=== PATIENT | female | born 1965 | race African-American/Black ===

== ENCOUNTER 2016-12-02 06:21 | Day surgery (SDC) | payer OTHER ==
[2016-12-01 12:49] VITALS: BMI 31.6
[2016-12-02] MEDS ORDERED: ePHEDrine SULFATE 50 MG/1 ML AMPULE ONE (07:10)
[2016-12-02] MEDS ORDERED: SUCCINYLCHOLINE CHLORIDE 200 MG/10 ML VIAL ONE (07:11)
[2016-12-02] MEDS ORDERED: MIDAZOLAM HCL 2 MG/2 ML SINGLE DOSE VIAL ONE ×2 (07:11)
[2016-12-02] MEDS ORDERED: ceFAZolin SODIUM 1 GM VIAL ONE (07:11)
[2016-12-02] MEDS ORDERED: PHENYLEPHRINE HCL 10 MG/1 ML SINGLE DOSE VIAL ONE (07:11)
[2016-12-02] MEDS ORDERED: PROPOFOL 20 ML ONE ×2 (07:11)
[2016-12-02] MEDS ORDERED: DEXAMETHASONE SOD PHOSPHATE 4 MG/1 ML VIAL ONE (07:11)
[2016-12-02] MEDS ORDERED: LIDOCAINE HCL/PF 2% SDV 5ML VIAL ONE ×2 (07:11→07:16)
[2016-12-02] MEDS ORDERED: ROCURONIUM BROMIDE 50 MG/5 ML VIAL ONE (07:11)
[2016-12-02] MEDS ORDERED: ACETAMINOPHEN INJECTION 100 ML IVPB ONE (07:18)
--- NOTE | 2016-12-02 07:58 | HP ---
Admitting History and Physical - Admission Chief Complaint: Excessive and prolonged menstruation History of Present Illness: 51 yo Para 3, with previous , is Pre op for abdominal hysterectomy. She's been experiencing prolonged and excessive menstruation. She's on medication for Hypertension. History Source: Patient Limitations to Obtaining History: No Limitations - Past Medical History ...LMP: 11/04/16 ...: No ...Para: 3 - Past Surgical History Past Surgical History: Yes: - Smoking History Smoking history: Never smoked - Alcohol/Substance Use Hx Alcohol Use: No History of Substance Use: reports: None - Social History History of Recent Travel: No Home Medications - Allergies Allergies/Adverse Reactions: Allergies Allergy/AdvReac Type Severity Reaction Status Date / Time No Known Allergies Allergy Verified 12/02/16 06:50 - Home Medications Home Medications: Ambulatory Orders Amlodipine Besylate 5 mg PO DAILY 12/01/16 Aspirin [ASA -] 81 mg PO DAILY 12/01/16 Losartan/Hydrochlorothiazide [Losartan-Hctz 100-25 mg Tab] 1 each PO DAILY 12/01 Multivitamins [Tab-A-Vit -] 1 tab PO DAILY 12/01/16 Family Disease History - Family Disease History Family History: Unremarkable Review of Systems - Review of Systems Constitutional: reports: No Symptoms Eyes: reports: No Symptoms HENT: reports: No Symptoms Neck: reports: No Symptoms Cardiovascular: reports: No Symptoms Respiratory: reports: No Symptoms Gastrointestinal: reports: No Symptoms Genitourinary: reports: Vaginal Bleeding Breasts: reports: No Symptoms Reported Musculoskeletal: reports: No Symptoms Integumentary: reports: No Symptoms Neurological: reports: No Symptoms Endocrine: reports: No Symptoms Hematology/Lymphatic: reports: No Symptoms Psychiatric: reports: No Symptoms Pain Intensity: 0 Physical Examination Vital Signs: Vital Signs Temperature 97.8 F 12/02/16 06:51 Pulse Rate 91 H 12/02/16 06:51 Respiratory Rate 18 12/02/16 06:51 Blood Pressure 122/81 12/02/16 06:51 O2 Sat by Pulse Oximetry (%) 98 12/02/16 06:50 Constitutional: Yes: Well Nourished Eyes: Yes: Conjunctiva Clear HENT: Yes: Atraumatic Neck: Yes: Supple, Trachea Midline Cardiovascular: Yes: Regular Rate and Rhythm Respiratory: Yes: Regular, CTA Bilaterally Gastrointestinal: Yes: Normal Bowel Sounds ...Rectal Exam: Yes: WNL Renal/: Yes: WNL Musculoskeletal: Yes: WNL Extremities: Yes: WNL Neurological: Yes: Alert, Oriented ...Motor Strength: WNL Psychiatric: Yes: Alert, Oriented Problem List - Problems (1) Menorrhagia with regular cycle Code(s): N92.0 - EXCESSIVE AND FREQUENT MENSTRUATION WITH REGULAR CYCLE Assessment/Plan Menorrhagia Pre op for JOSUE Consent signed Prep and shave Anesthesia to see patient
--- NOTE | 2016-12-02 07:59 | OP ---
Operative Note - Note: Operative Date: 12/02/16 Pre-Operative Diagnosis: Menorrhagia Operation: Abdominal Hysterectomy Findings: Leiomyomatous uterus Post-Operative Diagnosis: Other (Menorrhagia, Leiomyoma of the uterus) Surgeon: Rhona Barrientos Engineering Surveyor: Cristina Zuniga Anesthesia: General Specimens Removed: Uterus, Tubes, Ovaries Estimated Blood Loss (mls): 150
[2016-12-02] MEDS ORDERED: DESFLURANE GAS 240 ML BOTTLE IH ONE (08:01)
[2016-12-02] MEDS ORDERED: ceFAZolin SODIUM 1 GM VIAL IVPB ONE (08:36)
[2016-12-02] MEDS ORDERED: HYDROmorphone HCL/PF 1 MG/ML VIAL (FOR PYXIS CHARGING ONLY) ONE (08:59)
[2016-12-02] MEDS ORDERED: GLYCOPYRROLATE 0.2 MG/1 ML VIAL ONE (09:25)
[2016-12-02] MEDS ORDERED: NEOSTIGMINE METHYLSULFATE 0.5 MG/ML - 10 ML MDV ONE (09:25)
[2016-12-02] MEDS ORDERED: KETOROLAC TROMETHAMINE 30 MG/1 ML VIAL ONE (09:25)
[2016-12-02] MEDS ORDERED: PROMETHAZINE HCL 25 MG/1 ML VIAL IVPUSH PRN (10:10)
[2016-12-02] MEDS ORDERED: ONDANSETRON 4 MG/2 ML VIAL IVPUSH PRN ×2 (10:10)
[2016-12-02] MEDS ORDERED: PROMETHAZINE HCL 25 MG/1 ML VIAL IVPB PRN (10:10)
[2016-12-02] MEDS: CEFAZOLIN (PRE-DOCKED) 50 ML IVPB SCH (18:16)
[2016-12-02] MEDS: HYDROmorphone *PCA* 10MG/50ML DISP.SYRIN PCA SCH (19:26)
[2016-12-02] MEDS: LACTATED RINGERS SOLUTION 1,000 ML IV SCH (19:27)
[2016-12-02] MEDS: DEXTROSE 5%-LACTATED RINGERS 1,000 ML IV SCH (19:43)
[2016-12-03] MEDS: CEFAZOLIN (PRE-DOCKED) 50 ML IVPB SCH (02:17)
[2016-12-03] MEDS: DEXTROSE 5%-LACTATED RINGERS 1,000 ML IV SCH (04:03)
--- NOTE | 2016-12-03 07:29 | PN ---
Progress Note, Physician Chief Complaint: feeling well she offers no complaints History of Present Illness: s/p alfonso condition is stable on first post operative day - Current Medication List Current Medications: Active Medications Amlodipine Besylate (Norvasc -) 5 mg PO ONCE ONE Stop: 12/03/16 07:21 Diphenhydramine HCl (Benadryl Injection -) 12.5 mg IVPUSH ONCE PRN PRN Reason: FOR ITCHING Enoxaparin Sodium (Lovenox -) 40 mg SQ DAILY [facility] HCTZ/Losartan Potassium (Hyzaar -) 2 tab PO DAILY [facility] Hydromorphone HCl (Dilaudid Filenet P8 Developer -) 0 mg ADDRESS CHANGE CLERK ADDRESS CHANGE CLERK POOJA PRN Reason: Protocol Stop: 12/09/16 10:11 Last Admin: 12/02/16 19:26 Dose: Not Given Lactated Ringer's (Lactated Ringers Solution) 1,000 mls @ 125 mls/hr IV ASDIR [facility] Last Admin: 12/02/16 19:27 Dose: Not Given Dextrose/Lactated Ringer's (D5-Lr -) 1,000 mls @ 125 mls/hr IV ASDIR [facility] Last Admin: 12/03/16 04:03 Dose: 125 mls/hr Multivitamins/Minerals (Theragran-M) 1 each PO DAILY [facility] Promethazine HCl (Phenergan Injection -) 12.5 mg IVPB Q6H PRN PRN Reason: NAUSEA AND/OR VOMITING - Objective Vital Signs: Vital Signs Temperature 98.7 F 12/03/16 06:00 Pulse Rate 77 12/03/16 06:00 Respiratory Rate 18 12/03/16 06:00 Blood Pressure 105/62 12/03/16 06:00 O2 Sat by Pulse Oximetry (%) 100 12/02/16 12:45 Constitutional: Yes: Well Nourished, No Distress, Calm Eyes: Yes: WNL, Conjunctiva Clear HENT: Yes: WNL, Atraumatic Neck: Yes: WNL, Supple Cardiovascular: Yes: WNL Respiratory: Yes: WNL Gastrointestinal: Yes: WNL ...Rectal Exam: Yes: Deferred Genitourinary: Yes: WNL, Vaginal Bleeding Breast(s): Yes: WNL Musculoskeletal: Yes: WNL Extremities: Yes: WNL Edema: No Peripheral Pulses WNL: Yes Integumentary: Yes: WNL Wound/Incision: Yes: Dressing Dry and Intact Neurological: Yes: Alert, Oriented ...Motor Strength: WNL Psychiatric: Yes: WNL, Alert, Oriented Assessment/Plan s/p alfonso condition is stable continue current care encourage ambulation
[2016-12-03] MEDS ORDERED: amLODIPine BESYLATE 5 MG TABLET (FP) PO ONE (08:45)
[2016-12-03] MEDS: MULTIVITAMINS THER W-MINERALS COMBO TABLET (FP) PO SCH (09:14)
[2016-12-03] MEDS: HYDROmorphone *PCA* 10MG/50ML DISP.SYRIN PCA SCH (09:57)
[2016-12-03] MEDS: ENOXAPARIN NA (PORCINE) 40 MG/0.4 ML DISP.SYRIN SQ SCH (10:46)
[2016-12-03] MEDS: LOSARTAN 50MG/HCTZ 12.5MG 1 TAB (FP) PO SCH (10:46)
[2016-12-03] MEDS ORDERED: PCA PUMP KEY 1 EACH EACH ONE (11:56)
[2016-12-03] MEDS: ACETAMINOPHEN 325 MG TABLET (FP) PO PRN ×3 (12:02→21:12)
[2016-12-03] MEDS: SIMETHICONE 80 MG TAB.CHEW (FP) PO PRN ×2 (12:03→17:21)
[2016-12-03] MEDS: oxyCODONE HCL 5 MG TABLET PO PRN ×3 (12:03→21:12)
[2016-12-03] MEDS: LACTATED RINGERS SOLUTION 1,000 ML IV SCH (13:06)
--- NOTE | 2016-12-03 15:36 | DS ---
Physical Examination Vital Signs: Vital Signs Temperature 98.3 F 12/03/16 14:00 Pulse Rate 87 12/03/16 14:00 Respiratory Rate 18 12/03/16 14:00 Blood Pressure 117/58 12/03/16 14:00 O2 Sat by Pulse Oximetry (%) 99 12/03/16 08:05 Constitutional: Yes: Well Nourished Eyes: Yes: Conjunctiva Clear HENT: Yes: Atraumatic Neck: Yes: Supple, Trachea Midline Respiratory: Yes: Regular, CTA Bilaterally Gastrointestinal: Yes: Normal Bowel Sounds Wound/Incision: Yes: Clean/Dry, Dressing Dry and Intact Neurological: Yes: Alert, Oriented ...Motor Strength: WNL Psychiatric: Yes: Alert, Oriented Discharge Summary Reason For Visit: EXCESSIVE AND FREQUENT MENSTRUATION WITH REGULAR C Current Active Problems Menorrhagia with regular cycle (Acute) Procedures: Principal: Abdominal supracervical hysterectomy / BSO Hospital Course: Post op care Pain management No blood transfusion Antibiotic therapy Condition: Good - Instructions Diet, Activity, Other Instructions: No driving, no lifting x 2 weeks Disposition: HOME - Home Medications Comprehensive Discharge Medication List: Ambulatory Orders Amlodipine Besylate 5 mg PO DAILY 12/01/16 Aspirin [ASA -] 81 mg PO DAILY 12/01/16 Losartan/Hydrochlorothiazide [Losartan-Hctz 100-25 mg Tab] 1 each PO DAILY 12/01 Multivitamins [Tab-A-Vit -] 1 tab PO DAILY 12/01/16
--- NOTE | 2016-12-03 17:54 | PN ---
Progress Note (short form) - Note Progress Note: Anesthesiology Post-op/Pain Service POD #1 s/p JOSUE under GA. Pt. had PROCESS DEVELOPMENT MANAGER post-op for pain which was d/c'd this morning. She has no complaints and pain is well-managed. VSS.
--- NOTE | 2016-12-04 07:36 | PN ---
Progress Note (SOAP) - Subjective Chief Complaint: Pt doing well Desires to go home - Current Medications Current Medications: Active Medications Acetaminophen (Tylenol -) 650 mg PO Q4H PRN PRN Reason: PAIN Last Admin: 12/03/16 21:12 Dose: 650 mg Diphenhydramine HCl (Benadryl Injection -) 12.5 mg IVPUSH ONCE PRN PRN Reason: FOR ITCHING Enoxaparin Sodium (Lovenox -) 40 mg SQ DAILY [facility] Last Admin: 12/03/16 10:46 Dose: 40 mg HCTZ/Losartan Potassium (Hyzaar -) 2 tab PO DAILY [facility] Last Admin: 12/03/16 10:46 Dose: 2 tab Dextrose/Lactated Ringer's (D5-Lr -) 1,000 mls @ 125 mls/hr IV ASDIR [facility] Last Admin: 12/03/16 04:03 Dose: 125 mls/hr Multivitamins/Minerals (Theragran-M) 1 each PO DAILY [facility] Last Admin: 12/03/16 09:14 Dose: 1 each Oxycodone HCl (Roxicodone -) 5 mg PO Q4H PRN Last Admin: 12/03/16 21:12 Dose: 5 mg Promethazine HCl (Phenergan Injection -) 12.5 mg IVPB Q6H PRN PRN Reason: NAUSEA AND/OR VOMITING Simethicone (Mylicon -) 80 mg PO Q4H PRN Last Admin: 12/03/16 17:21 Dose: 80 mg - Objective Vital Signs: Vital Signs Temperature 98.6 F 12/04/16 06:00 Pulse Rate 86 12/04/16 06:00 Respiratory Rate 18 12/04/16 06:00 Blood Pressure 94/63 12/04/16 06:00 O2 Sat by Pulse Oximetry (%) 99 12/03/16 08:05 Constitutional: Yes: Well Nourished, No Distress Gastrointestinal: Yes: WNL, Soft, Abdomen, Obese Musculoskeletal: Yes: WNL Extremities: Yes: WNL Edema: No Wound/Incision: Yes: Steri Strips, Open to air Assessment/Plan SP Hysterectomy POD2 Plan DC home percocet due to hTN (unable to take motrin) CBC stat
[2016-12-04 08:55] LABS: BASOPHIL 0.4 % (0-2.0); EOSINOPHIL 1.1 % (0-4.5); MCH 27.5 pg (25.7-33.7); MCHC 33.2 g/dl (32.0-36.0); MEAN CELL VOLUME 82.8 fl (80-96); PLATELET COUNT 218 K/MM3 (134-434); RDW 16.3 % (11.6-15.6); WHITE BLOOD COUNT 8.3 K/mm3 (4.0-10.0)
[2016-12-04] MEDS: ENOXAPARIN NA (PORCINE) 40 MG/0.4 ML DISP.SYRIN SQ SCH (09:28)
[2016-12-04] MEDS: LOSARTAN 50MG/HCTZ 12.5MG 1 TAB (FP) PO SCH (09:28)
[2016-12-04] MEDS: MULTIVITAMINS THER W-MINERALS COMBO TABLET (FP) PO SCH (09:28)
[2016-12-04] MEDS: oxyCODONE HCL 5 MG TABLET PO PRN (09:29)
[2016-12-04] MEDS: SIMETHICONE 80 MG TAB.CHEW (FP) PO PRN (09:29)
[2016-12-04] MEDS: ACETAMINOPHEN 325 MG TABLET (FP) PO PRN (09:29)
[2016-12-04 09:45] VITALS: BP 110/69; PULSE 89; TEMP 98.9
--- NOTE | 2016-12-05 13:37 | PATH ---
Surgical Pathology Report Patient Name: MALIA CARMONA [facility]. Rec. #: [id number] /Age/Gender: 1965 (Age: 51) / F Account: [id number] Location: AMBULATORY SURG Taken: 12/02/2016 Received: 12/02/2016 Reported: 12/05/2016 Physicians: Rhona Barrientos M.D. Specimen(s) Received UTERUS BILATERAL FALLOPIAN TUBES, BILATERAL OVARIES Clinical History Excessive and frequent maturation Final Diagnosis UTERUS, BILATERAL FALLOPIAN TUBES AND OVARIES, ABDOMINAL HYSTERECTOMY: CERVICAL STUMP: WITHOUT SIGNIFICANT PATHOLOGIC CHANGES. ENDOMETRIUM: PREDOMINANTLY SECRETORY TYPE. MYOMETRIUM: ADENOMYOSIS, ADENOMYOMA, LEIOMYOMATA (LARGEST 3.0 CM). UTERINE SEROSA: WITHOUT SIGNIFICANT PATHOLOGIC CHANGES. LEFT FALLOPIAN TUBE: VASCULAR CONGESTION. LEFT OVARY: HEMORRHAGIC CORPORA LUTEA. RIGHT FALLOPIAN TUBE: PARATUBAL CYST. RIGHT OVARY: CYSTIC CORPORA LUTEA, CYSTIC FOLLICLE. Electronically Signed Phong Sánchez M.D. Gross Description Received in formalin labeled "uterus, bilateral fallopian tubes, bilateral ovaries" is a 229 g supracervically amputated uterus with attached bilateral fallopian tubes and bilateral ovaries. The specimen measures 8.3 cm from superior to inferior, 7.4 cm from left to right and 6.3 cm from anterior to posterior. The serosa is sosa-pink and smooth. The endometrial cavity measures 6 cm in length and 2.6 cm from cornu to cornu. The endometrium is hyperemic and averages 0.1 cm in thickness. The myometrium displays multiple intramural nodules, measuring up to 3 cm in greatest dimension. The cut surface of the nodules is sosa, firm to rubbery and displays whirled architecture. No areas of hemorrhage or necrosis are identified. The remaining myometrium is sosa-pink and averages 3 cm in thickness. The left fimbriated fallopian tube measures 4 cm in length. The outer surface is hollins-purple and smooth. Sectioning reveals an unremarkable lumen. The attached left ovary measures 4.5 x 2.6 x 1.5 cm. The outer surface displays a hollins-purple, cystic appearance. Sectioning reveals a 1.0 cm in greatest dimension hemorrhagic cyst as well as a 2 cm in greatest dimension hemorrhagic corpus luteum. The remaining ovarian parenchyma is unremarkable. The right fimbriated fallopian tube measures 3 cm in length. The outer surface is hollins-purple and smooth. Sectioning reveals an unremarkable lumen. The attached right ovary measures 5.3 x 3.3 x 2.0 cm. The outer surface is sosa-pink and smooth. Sectioning reveals multiple cysts containing clear fluid. Diver Assistant sections are submitted in 17 cassettes as follows: 1-cervical stump margin of resection; 1-8-qshhwmkk endomyometrium; 7-9-qwaihyzdv endomyometrium; 7-2-hjknnaqppp nodules; 9-left fallopian tube fimbria; 10-cross sections of left fallopian tube; 11-left ovary hemorrhagic corpus luteum; 12-left ovary hemorrhagic cyst; 13-additional left ovary; 14-right fallopian tube fimbria; 15-cross sections of right fallopian tube; 16-right ovary cysts; 17-additional right ovary. 12/02/2016 [facility]
--- NOTE | 2016-12-15 10:26 | OP ---
DATE OF OPERATION: 12/02/2016 PREOPERATIVE DIAGNOSES: Menorrhagia and leiomyoma of the uterus. POSTOPERATIVE DIAGNOSES: Menorrhagia and leiomyoma of the uterus. PROCEDURE: Subtotal hysterectomy and bilateral salpingo-oophorectomy. SURGEON: Jeanna Barrientos MD SENIOR CONTRACTS ADMINISTRATOR: Dr. Cain. ANESTHESIA: General. COMPLICATIONS: None. ESTIMATED BLOOD LOSS: 150 mL. PROCEDURE: Patient was taken to the operating room, where general anesthesia was administered. Patient was then prepped and draped in proper sterile fashion. A Pfannenstiel incision was made and carried down to the underlying layer of fascia. The fascia was incised in the midline and extended laterally. The superior aspect of the fascial incision was then grasped with a Mark clamp, elevated, and the rectus muscle dissected off bluntly. Attention was then turned to the inferior aspect of the fascial incision which in a similar fashion was then grasped with a Mark clamp, elevated, and the rectus muscle dissected off bluntly. The rectus muscle was then in the midline. The peritoneum identified and entered with the Metzenbaum scissors. This incision was extended laterally. Then, the bowel was packed with moist laparotomy sponges. A 2-pin clamp was placed on the cornua and used for retraction. The round ligaments on both sides were then clamped using the LigaSure device, burned, and cut. The anterior leaf of the broad ligament was incised along the bladder reflection to the midline from both sides. The bladder was then gently dissected off the lower uterine segment and the cervix with a sponge stick. The infundibulopelvic ligaments on both sides were then clamped with the LigaSure device, burned, and cut. Hemostasis was visualized. The uterine arteries were skeletonized bilaterally, clamped, burned , and cut. Again, hemostasis was assured. The uterus was then amputated with the cautery. The cervical stump was then closed using 1-0 Vicryl. Pelvis was then completely irrigated. Intercede was placed over the cervical stump. All laparotomy sponges and instruments were removed from the abdomen. The fascia was closed with running 0 Vicryl. The skin was closed in a subcuticular fashion using 3-0 Vicryl. Sponge, lap, needle, and instrument counts were correct x2. The patient was taken to PACU in stable condition. PATHOLOGY: Uterus, tubes, and ovaries. Christelle [id number] MTDD
== END 2016-12-04 10:45 | disposition home or self-care (01) ==
LOC: JASUSAT 06:21 → EDSTATUS 08:00 → J3W 12:44 → JASUSAT 12-04 10:45
PROVIDERS: ATTEND Obstetrics & Gynecology
PROC: 0UTC7ZZ Resection of Cervix, Via Natural or Artificial Opening (ICD-10-PCS; 2016-12-02)
PROC: 0UT2FZZ Resection of Bilateral Ovaries, Via Natural or Artificial Opening With Percutaneous Endoscopic Assistance (ICD-10-PCS; 2016-12-02)
PROC: 0UT7FZZ Resection of Bilateral Fallopian Tubes, Via Natural or Artificial Opening With Percutaneous Endoscopic Assistance (ICD-10-PCS; 2016-12-02)
PROC: 0UT9FZZ Resection of Uterus, Via Natural or Artificial Opening With Percutaneous Endoscopic Assistance (ICD-10-PCS; principal; 2016-12-02 07:30)
DX: N92.0 Excessive and frequent menstruation with regular cycle (principal); D25.9 Leiomyoma of uterus, unspecified
CPT/HCPCS: 36415; 84703; 85025; 86850; 86900; 86901; 88307-TC; 94760